=== PATIENT | female | born 1990 | race Two or more races ===

== ENCOUNTER 2021-09-25 18:11 | Emergency (ER) | payer MEDICAID ==
[~2021-09-25] VITALS: Ht 152.4 cm; Wt 60.9 kg
[2021-09-25 18:38] VITALS: BP 13/73
[2021-09-25 19:06] LABS: URINE HCG NEGATIVE (NEG)
[2021-09-25 19:08] LABS: CLARITY,URINE CLOUDY (Clear); COLOR,URINE YELLOW (Yellow); GLUCOSE, URINE 100 mg/dl (Neg); KETONES,URINE TRACE mg/dl (Neg); LEUKOCYTE ESTERASE ,URINE SMALL (Neg); NITRITES, URINE POSITIVE (Neg); OCCULT BLOOD,URINE LARGE (Neg); PH,URINE 5.5 (4.8-8.0); PROTEIN,URINE 100 mg/dl (Neg)
[2021-09-25 19:10] LABS: UA COLLECTION TYPE CLN CATCH MIDSTREAM
[2021-09-25] MEDS ORDERED: nitrofuran monohydrate/nitrofuran macrocrysal 100 MG (MacroBID) capsule PO ONE (19:30)
[2021-09-25] MEDS ORDERED: phenazopyridine 100mg tablet PO ONE (19:30)
[2021-09-25 19:42] LABS: RBC,URINE 20-50 /HPF (0-2); WBC,URINE TNTC /HPF (0-4)
[2021-09-25 19:43] LABS: BACTERIA,URINE 2+ /HPF (Neg); MUCUS STRANDS FEW /LPF (Neg); SQUAMOUS EPITHELIAL CELL,UR FEW /LPF (FEW)
[2021-09-25] MEDS ORDERED: PHEN-786 PO (19:46)
[2021-09-25] MEDS ORDERED: NITR100C6 PO (19:46)
== END 2021-09-25 19:55 | disposition home or self-care (01) ==
LOC: ER 18:14
DX: N39.0 Urinary tract infection, site not specified (principal); R10.2 Pelvic and perineal pain; Z79.899 Other long term (current) drug therapy; Z87.440 Personal history of urinary (tract) infections
CPT/HCPCS: 81001; 81025; 82948; 87077; 87088; 87186; 99283